=== PATIENT | male | born 1955 | race American Indian/Alaskan Native ===

== ENCOUNTER 2019-09-08 18:36 | Emergency (ER) | payer SELFPAY ==
[2019-09-08] MEDS ORDERED: IBUPROFEN 600 MG TAB PO ONE (19:45)
[2019-09-08] MEDS ORDERED: HYDROcodone/ACETAMINOPHEN 7.5-325MG TAB PO ONE (19:45)
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
[2019-09-08 21:17] VITALS: BP 126/70
== END 2019-09-08 22:30 | disposition home or self-care (01) ==
LOC: ED 18:36
DX: S16.1XXA Strain of muscle, fascia and tendon at neck level, initial encounter (principal); S09.90XA Unspecified injury of head, initial encounter; E11.9 Type 2 diabetes mellitus without complications; Z79.899 Other long term (current) drug therapy; V49.69XA Unspecified car occupant injured in collision with other motor vehicles in traffic accident, initial encounter; Y93.89 Activity, other specified; Y92.89 Other specified places as the place of occurrence of the external cause; Y99.8 Other external cause status
CPT/HCPCS: 70450; 72125

== ENCOUNTER 2020-05-18 14:30 | Emergency (ER) | payer SELFPAY ==
[2020-05-18 16:11] VITALS: BP 116/77
== END 2020-05-18 16:15 ==
LOC: ED 14:30
DX: R06.02 Shortness of breath (principal); Z53.21 Procedure and treatment not carried out due to patient leaving prior to being seen by health care provider
CPT/HCPCS: 82962